=== PATIENT | male | born 1955 | race Caucasian/White ===

== ENCOUNTER 2018-07-01 08:23 | Emergency (ER) | payer MEDICARE ==
[2018-07-01 09:00] LABS: #Eosinphils 0.2 thou/uL (0.0-0.7); #Lymphocytes 2.5 thou/uL (1.20-3.40); #Monocytes 0.4 thou/uL (0.11-0.59); #Neutrophils 2.1 thou/uL (1.40-6.50); %Basophils 0.7 % (0.0-1.0); %Eosinophils 4.6 % (0.0-10.0); %Lymphocytes 47.6 % (21.0-51.0); %Monocytes 8.1 % (0.0-10.0); Hemoglobin 14.7 g/dL (14.0-18.0); Mean Corpuscular HGB CONC 33.6 g/dL (32.0-36.0); Mean Corpuscular Hemoglobin 30.3 pg (27.0-31.0); Mean Corpuscular Volume 90.2 fL (78.0-98.0); Mean Platelet Volume 8.6 fL (7.4-10.4); Platelet Count 206 thou/uL (130-400); RBC Distribution Width 11.6 % (11.5-14.5); Red Blood Cell (RBC) Count 4.87 mill/uL (4.70-6.10); White Blood Cell (WBC) Count 5.3 thou/uL (4.8-10.8)
[2018-07-01 09:24] LABS: ALT (SGPT) 17 U/L (8-55); AST (SGOT) 28 U/L (5-34); Albumin 3.8 g/dL (3.4-4.8); Alkaline Phosphatase 48 U/L (40-150); Anion Gap 14 mmol/L (10-20); BUN (Urea Nitrogen) 12 mg/dL (8.4-25.7); Bilirubin, Total 0.8 mg/dL (0.2-1.2); Calc. Creatinine Clearance 0 mL/min (70-130); Calcium 9.3 mg/dL (7.8-10.44); Carbon Dioxide 24 mmol/L (23-31); Chloride 101 mmol/L (98-107); Estimated GFR-MDRD 54; Glucose 80 mg/dL (80-115); Lipase 67 U/L (8-78); Potassium 4.1 mmol/L (3.5-5.1); Protein, Total 6.8 g/dL (5.8-8.1); Sodium 135 mmol/L (136-145)
[2018-07-01 09:25] LABS: Bilirubin Negative (Negative); Blood, Urine Negative (Negative); Clarity CLEAR (Clear); Glucose, Urine (Dipstick) Negative (Negative); Leukocyte Negative (Negative); Nitrite Negative (Negative); Protein, Urine (Dipstick) Negative (Neg-Trace); Specific Gravity, Urine 1.016 (1.002-1.036); Urobilinogen 0.2 mg/dL (0.2-1.0)
--- NOTE | 2018-07-01 11:52 | CT ---
CT ABDOMEN AND PELVIS WITH ORAL AND IV CONTRAST: Date: 07/01/18 HISTORY: 63-year-old male with lower abdominal pain. Patient has a past medical history of malignant melanoma. FINDINGS: There is scarring in the right lung base. A 5.0 cm mass is seen in the left lobe of the liver with pe ripheral nodular enhancement. No calcified gallstones are seen. The spleen, pancreas, adrenal glands, and kidneys are normal. No free air, free fluid, or lymphadenopathy seen in the abdomen or pelvis. The small bowel loops are not abnormally dilated. There are vascular calcifications without evidence of aneurysmal dilatation o f the abdominal aorta. Degenerative changes are present in the spine. There is no evidence of appendi citis. A fat-containing left inguinal hernia is present. IMPRESSION: 1. No acute process. 2. Probable hemangioma in the liver. Further evaluation with technetium-99m RBC scan is recommended. POS: RAMSEY
== END 2018-07-01 12:08 | disposition home or self-care (01) ==
LOC: ERS 08:23
DX: R10.30 Lower abdominal pain, unspecified (principal); E78.2 Mixed hyperlipidemia; F32.9 Major depressive disorder, single episode, unspecified; Z87.891 Personal history of nicotine dependence; Z79.899 Other long term (current) drug therapy
CPT/HCPCS: 36415; 74177; 80053; 81003; 83690; 84484; 85025; 93005

== ENCOUNTER 2019-05-27 15:53 | Outpatient (CLI) | payer MEDICARE ==
--- NOTE | 2019-05-27 16:14 | RAD ---
3 views of the right foot: 05/27/2019 COMPARISON: None HISTORY: Right foot pain FINDINGS: No fracture or dislocation. No radiopaque foreign body or subcutaneous gas. There is mild d egenerative change at the first interphalangeal joint and first metatarsal-phalangeal joint. There is mild enthesophyte formation at the insertion of the Achilles tendon. IMPRESSION: No acute findings.
== END 2019-05-27 15:54 | disposition home or self-care (01) ==
LOC: SCSRAD 15:53
PROVIDERS: ATTEND Family Medicine
DX: M79.671 Pain in right foot (principal)
CPT/HCPCS: 36415; 84550

== ENCOUNTER 2019-07-10 13:26 | Outpatient (CLI) | payer MEDICARE ==
--- NOTE | 2019-07-10 14:08 | ULT ---
EXAM: Bilateral lower extremity venous Doppler US HISTORY: bilateral lower extremity edema and pain FINDINGS: Grayscale, color-flow, Doppler evaluation, spectral analysis of the bilateral lower extremities venou s structures is performed with 2-D imaging. The bilateral common femoral, superficial femoral, popliteal, posterior tibial, proximal greater saphenous and profunda femoral veins are imaged. There is normal luminal compressibility, flow, and augmentation in the visualized deep venous structu res of the bilateral lower extremities. IMPRESSION: No evidence of a deep vein thrombosis in either lower extremity.
== END 2019-07-10 13:27 | disposition home or self-care (01) ==
LOC: SCSULT 13:26
PROVIDERS: ATTEND Urology
DX: M79.89 Other specified soft tissue disorders (principal); R60.0 Localized edema; Z86.711 Personal history of pulmonary embolism
CPT/HCPCS: 93970

== ENCOUNTER 2019-08-13 16:19 | Inpatient (IN) | payer MEDICARE ==
[2019-08-13] MEDS ORDERED: Norepinephrine 8 MG/0.9% NS 250 ML ONE (16:31)
[2019-08-13 16:56] LABS: #Eosinphils 0.1 thou/uL (0.0-0.7); #Lymphocytes 1.6 thou/uL (1.20-3.40); #Monocytes 0.8 thou/uL (0.11-0.59); #Neutrophils 13.2 thou/uL (1.40-6.50); %Basophils 0.1 % (0.0-1.0); %Eosinophils 0.4 % (0.0-10.0); %Lymphocytes 10.2 % (21.0-51.0); %Monocytes 5.1 % (0.0-10.0); %Neutrophils 84.2 % (42.0-75.0); Hemoglobin 12.2 g/dL (14.0-18.0); Mean Corpuscular HGB CONC 31.8 g/dL (32.0-36.0); Mean Corpuscular Hemoglobin 29.6 pg (27.0-31.0); Mean Corpuscular Volume 93.1 fL (78.0-98.0); Mean Platelet Volume 8.9 fL (7.4-10.4); Platelet Count 155 thou/uL (130-400); RBC Distribution Width 11.7 % (11.5-14.5); Red Blood Cell (RBC) Count 4.13 mill/uL (4.70-6.10); White Blood Cell (WBC) Count 15.7 thou/uL (4.8-10.8)
[2019-08-13] MEDS ORDERED: DOPamine 400 MG/D5W 250 ML 0 ML ONE (16:56)
[2019-08-13 17:03] LABS: INR-International Normal Ratio 1.7; PTT 37.7 SEC (22.9-36.1); Prothrombin Time 19.9 SEC (12.0-14.7)
[2019-08-13 17:17] LABS: ALT (SGPT) 19 U/L (8-55); AST (SGOT) 40 U/L (5-34); Alkaline Phosphatase 46 U/L (40-110); Anion Gap 10 mmol/L (10-20); BUN (Urea Nitrogen) 19 mg/dL (8.4-25.7); Bilirubin, Total 1.1 mg/dL (0.2-1.2); Calc. Creatinine Clearance 0 mL/min (70-130); Calcium 7.6 mg/dL (7.8-10.44); Carbon Dioxide 18 mmol/L (23-31); Chloride 112 mmol/L (98-107); Estimated GFR-MDRD 46; Globulin 1.9 g/dL (2.4-3.5); Glucose 115 mg/dL (80-115); Protein, Total 4.9 g/dL (5.8-8.1); Sodium 137 mmol/L (136-145)
[2019-08-13 17:20] LABS: Potassium 2.7 mmol/L (3.5-5.1)
[2019-08-13] MEDS ORDERED: Potassium Chloride 40 MEQ in Sodium Chloride 0.9% 250 ML 250 ML IVPB SCH (19:30)
[2019-08-13] MEDS ORDERED: Sodium Chloride 0.9% 1,000 ML IV SCH (19:53)
[2019-08-13 19:56] LABS: Lactic Acid 1.1 mmol/L (0.5-2.2)
[2019-08-13] MEDS ORDERED: Norepinephrine 8 MG/0.9% NS 250 ML IVPB SCH ×2 (20:02→20:05)
[2019-08-13] MEDS ORDERED: Ondansetron PF 4 MG/2 ML Vial IVP PRN (20:05)
[2019-08-13] MEDS ORDERED: HYDROcodone/Acetaminophen 5/325 mg Tablet PO PRN ×2 (20:05)
[2019-08-13] MEDS ORDERED: Ondansetron ODT 4 MG TAB PO PRN (20:05)
[2019-08-13] MEDS ORDERED: Guaifenesin DM 100-10/5 ML UDCUP PO PRN (20:05)
[2019-08-13] MEDS ORDERED: Senokot S 8.6-50 MG TAB PO PRN (20:05)
[2019-08-13] MEDS ORDERED: Acetaminophen 325 MG TAB PO PRN (20:05)
[2019-08-13] MEDS ORDERED: Acetaminophen 650 MG Suppository PR PRN (20:05)
[2019-08-13] MEDS: Rosuvastatin 20 MG TAB PO SCH (20:53)
[2019-08-13] MEDS: Sodium Chloride 0.9% 1,000 ML IV SCH (20:53)
--- NOTE | 2019-08-13 20:55 | HP ---
PRIMARY CARE PHYSICIAN: Huber Dominique MD CHIEF COMPLAINT: Altered mental status. HISTORY OF PRESENT ILLNESS: This is a 64-year-old male with a past medical history of hypertension, hyperlipidemia, who developed pain from one of his teeth starting about 5 days ago. The patient went to the dentist three days ago. He was diagnosed by x-ray with an abscess deep under one of his crowns, was given Cipro to take it to calm him down before he went to see the oral surgeon. The patient had continued pain and started feeling worse, just feeling bad all over, but was talking normally and acting normally. He did have a couple episodes of nausea and vomiting, but was able to keep the Cipro down for the most part. It is not certain he was having any fevers at the time when his tried to wake him up this morning, however, he was very difficult to arouse. He was confused and was minimally responsive, so he was brought into the [facility]. There, he was found to be in septic shock with hypotension. He was given 3 L of fluid. He was also found to be hypoglycemic, was given some dextrose, which resolved that. The patient's mental status improved. He remained hypotensive. However, they had to start Levophed on him. They also gave him Zosyn and vancomycin and transported him here. In our ER, he had persistently low blood pressures and had to have his Levophed titrated up eventually to 20, now is titrated back down to 18. His blood pressure started coming up. He had 3 L at the outside ER. He has had another 2 L here. He is feeling much better. His mental status has returned to normal. He is not complaining of any current pain. PAST MEDICAL HISTORY: 1. Hypertension. 2. Hyperlipidemia. 3. Hypothyroidism. 4. Low testosterone. 5. Benign prostatic hyperplasia. 6. Gastroesophageal reflux disease. 7. Neuropathic pain in his foot. 8. Previous melanoma. PAST SURGICAL HISTORY: 1. Left chest wall melanoma removal with left axillary sentinel node excision and left back basal cell excision in 2014. He also later had a left axillary lymph node dissection. 2. Right VATS surgery. 3. Left chest wall recurrent melanoma excision in 2017. 4. EGD in 2019. 5. Right total knee arthroplasty in 2019. SOCIAL HISTORY: The patient is a former smoker and has since quit. He drinks about 1 to 2 beers a day. No illicit drug use. He is . His is accompanied in the room. FAMILY HISTORY: No known family medical problems. ALLERGIES: NO KNOWN DRUG ALLERGIES. CURRENT MEDICATIONS: 1. Mirtazapine 7.5 mg at night. 2. Rosuvastatin 40 mg daily. 3. Tamsulosin 0.4 mg daily. 4. Nexium 40 mg daily. 5. Levothyroxine 0.025 mg daily. 6. Gabapentin 300 mg at bedtime. 7. Testosterone injections weekly. 8. Ciprofloxacin. 9. Flexeril started yesterday. 10. Arthur as needed for pain. REVIEW OF SYSTEMS: CONSTITUTIONAL: No fevers or chills noted. EYES: No double vision or blurred vision. ENT: No congestion, drainage or sore throat. He has had tooth pain and right lower molar as per HPI. CARDIOVASCULAR: No chest pain. No palpitations or racing heart. PULMONARY: No coughing, wheezing or shortness of breath. GASTROINTESTINAL: See HPI. No abdominal pain. No diarrhea. He did have one loose stool here in the emergency room, but has not had any diarrhea. Otherwise, no constipation. GENITOURINARY: No dysuria or hematuria. MUSCULOSKELETAL: No muscle aches or joint pain. SKIN: No rashes or lesions noted. NEUROLOGIC: He had confusion as per the HPI and generalized weakness that has improved now. No focal neurologic signs. LABORATORY DATA: CBC with white blood cell count of 15,000, hemoglobin 12.2, hematocrit 38.5, platelet count 155. He has a neutrophil predominance at 84%. Coagulation profile shows an INR of 1.7. Complete metabolic panel is notable for potassium of 2.7, chloride of 112, carbon dioxide of 18, creatinine of 1.53, calcium of 7.6, AST of 40, and albumin of 3.0. The rest is normal. Lactic acid here was elevated that was not elevated outside the ER, 2.4 here at 4:49 in the afternoon. IMAGING: I did review the imaging reports from the outside emergency room. He had a chest x-ray that showed no acute abnormalities. CT of the abdomen and pelvis that showed 2.4 cm indeterminate left hepatic lobe lesion, but no significant acute findings. He had a CT of the cervical spine without contrast showing no abnormalities. He had a CT of the head without contrast showing no acute intracranial abnormalities, though he did have some moderate mucosal disease of the sinuses. Other lab from the outside ER shows negative flu swab and urine drug screen that showed opiates and he is on those from the dentist. Lactic acid in the outside emergency room was normal. His glucose was initially 27 on presentation and that came up by the time he was here. TSH was normal. His creatinine was 1.8 in the outside emergency room. Potassium was 3.3. Lipase was negative. Magnesium was low at 1.5. No other significant abnormalities. EKG, I did review the EKG done in the emergency room, does show normal sinus rhythm without any significant ST changes. ASSESSMENT: 1. Septic shock likely from dental abscess as origin. We will continue IV fluids and pressors, and we will give Zosyn and vancomycin. Blood and urine cultures were collected at the outside emergency room before initial antibiotics, so we will need to follow up on those results. I will consult Pulmonology, Dr. Real, to assist with managing this patient. 2. Dental abscess. We will continue antibiotics. He will continue antibiotics. 3. Hypokalemia. We will give potassium IV cocktail. 4. Hypertension. We will hold antihypertensives for now due to his septic shock. 5. Hyperlipidemia. We will resume patient's statin. 6. Hypothyroidism. We will resume patient's levothyroxine. 7. Gastrointestinal prophylaxis. We will continue patient on a PPI. 8. Deep venous thrombosis prophylaxis. We will put patient on subcu Lovenox. 9. Code status. I did discuss this with the patient. He is a full code. Should he be incapacitated, his would be his medical decision maker. Her name is Lori Johnsonsallo. Job ID: [id number]
[2019-08-13] MEDS: Piperacillin/Tazobactam 4.5 GM in Sodium Chloride 0.9% 100 ML IVPB SCH (23:33)
[2019-08-13] MEDS ORDERED: Piperacillin/Tazobactam 4.5 GM in Sodium Chloride 0.9% 100 ML IVPB SCH (23:59)
[2019-08-14] MEDS ORDERED: Dextrose 50 % In Water 50 ML SYRINGE ONE (01:07)
[2019-08-14] MEDS ORDERED: Dextrose 50 % In Water 50 ML SYRINGE IV SCH (01:20)
[2019-08-14] MEDS: Piperacillin/Tazobactam 4.5 GM in Sodium Chloride 0.9% 100 ML IVPB SCH ×3 (05:46→17:01)
[2019-08-14] MEDS: Dextrose 5 % And 0.9 % NaCl 1,000 ML IV SCH ×4 (05:47→20:42)
[2019-08-14] MEDS: Sodium Chloride 0.9% 1,000 ML IV SCH ×4 (05:48→20:43)
[2019-08-14] MEDS: Levothyroxine Sodium 25 MCG TAB PO SCH (05:48)
[2019-08-14 05:51] LABS: #Eosinphils 0.1 thou/uL (0.0-0.7); #Lymphocytes 1.3 thou/uL (1.20-3.40); #Monocytes 0.5 thou/uL (0.11-0.59); #Neutrophils 6.2 thou/uL (1.40-6.50); %Basophils 0.6 % (0.0-1.0); %Eosinophils 1.6 % (0.0-10.0); %Lymphocytes 16.2 % (21.0-51.0); %Monocytes 5.8 % (0.0-10.0); %Neutrophils 75.9 % (42.0-75.0); Hemoglobin 10.1 g/dL (14.0-18.0); Mean Corpuscular HGB CONC 31.9 g/dL (32.0-36.0); Mean Corpuscular Hemoglobin 29.3 pg (27.0-31.0); Mean Corpuscular Volume 91.9 fL (78.0-98.0); Mean Platelet Volume 9.6 fL (7.4-10.4); Platelet Count 130 thou/uL (130-400); RBC Distribution Width 11.9 % (11.5-14.5); Red Blood Cell (RBC) Count 3.46 mill/uL (4.70-6.10); White Blood Cell (WBC) Count 8.1 thou/uL (4.8-10.8)
[2019-08-14 06:15] LABS: Anion Gap 8 mmol/L (10-20); BUN (Urea Nitrogen) 16 mg/dL (8.4-25.7); Calc. Creatinine Clearance 46 mL/min (70-130); Calcium 7.5 mg/dL (7.8-10.44); Carbon Dioxide 18 mmol/L (23-31); Chloride 118 mmol/L (98-107); Estimated GFR-MDRD 39; Glucose 87 mg/dL (80-115); Magnesium 1.8 mg/dL (1.6-2.6); Potassium 3.8 mmol/L (3.5-5.1); Sodium 140 mmol/L (136-145)
[2019-08-14] MEDS ORDERED: Albumin 25% 25 GM/100 ML BOT IVPB SCH (09:00)
--- NOTE | 2019-08-14 09:39 | CON ---
DATE OF CONSULTATION: HISTORY OF PRESENT ILLNESS: A 64-year-old gentleman from [place], [place], who was brought in here after he presented to the ER with apparently pain in his tooth. Apparently, he was hypertensive. His blood pressure was low in the ER, 88 systolic, respirations 16, saturations 100% on 2 L, received large volume of fluids. He was then transferred to [facility]. He is in the ICU right now, appears to be somewhat encephalopathic. His gives adequate history. PAST MEDICAL HISTORY: Pertinent for malignant melanoma diagnosed in 2014, status post wedge resection, chest wall, right side; history of high cholesterol; hyperlipidemia; high triglycerides; depression. PAST SURGICAL HISTORY: Right total knee . SOCIAL HISTORY: Smoking, quit 10 years ago. Alcohol: None. HOME MEDICATIONS: Includes Remeron 7.5, Crestor 40, Flomax 0.4, Synthroid 25, gabapentin 300, Nexium 40. ALLERGIES: NONE. SOCIAL AND FAMILY HISTORY: Unremarkable. PHYSICAL EXAMINATION: VITAL SIGNS: Blood pressure is 96/64, pulse is 86, saturations are 100% on 2 L, respirations 18. He has good urine output. NEUROLOGICAL: He is encephalopathic, but in no distress. CHEST: No wheezing or crackle. CARDIAC: Normal S1 and S2. No gallops. ABDOMEN: No masses. LABORATORY DATA: White count 8000, H and H 10 and 30, platelet count 138. Creatinine 1.74, glucose 110. ASSESSMENT AND PLAN: 1. Sepsis syndrome. 2. Infected teeth caries, multiple right upper jaw. 3. Azotemia. 4. Electrolyte imbalance. 5. History of melanoma. Pulmonary wang, I have added hydrocortisone to his regime, stress dose of steroids. Continue broad-spectrum antibiotics and supportive care. Wean Levophed when blood pressure is improved. He probably needs an outpatient evaluation regarding his bad teeth. This is a consultation note, 70 minutes, 50% direct patient care. Job ID: [id number]
[2019-08-14] MEDS: Enoxaparin Sodium 40 MG/0.4 ML SYRINGE SC SCH (10:08)
--- NOTE | 2019-08-14 11:41 | RAD ---
PORTABLE CHEST: Date: 08/14/2019 HISTORY: COPD. FINDINGS: Heart size within normal limits. Right-sided central line is present with catheter tip in superior ve na cava. Slight elevation of the right hemidiaphragm. Some minimal blunting to the right costophrenic angle is present. IMPRESSION: 1. Right-sided central line with catheter tip overlying superior vena cava. 2. Minimal blunting to right costophrenic angle. POS: RAMSEY
[2019-08-14] MEDS ORDERED: Vancomycin 1.5 GRAM/300 ML BAG 1.5 GM in Premix Bag 1 BAG IVPB SCH (13:00)
[2019-08-14] MEDS: Hydrocortisone Sod Succ/PF 100 mg/2 ml Vial IVP SCH ×2 (13:20→17:01)
--- NOTE | 2019-08-14 15:27 | PDOC.HOSPP ---
- Subjective Subjective: Patient seen and examined in the intensive care unit. at bedside, time was given for questions, all answered in detail. Vasoactive medications have been weaned. Patient is feeling much better. Patient's blood pressure normally runs 90 systolic per patient and his at bedside. He has been more alert and awake to his baseline. No fevers. WBC count has down trended with broad- spectrum antibiotics and he is responding to maximal medical therapy. - Objective Vital Signs & Weight: Vital Signs (12 hours) Temp 08/14/19 07:00 98.6 F 08/14/19 04:00 99.3 F Weight Weight 173 lb 1.006 oz Most Recent Monitor Data Heart Rate from ECG 83 NIBP 94/59 NIBP BP-Mean 70 Respiration from ECG 17 SpO2 100 I&O: 08/13/19 08/14/19 08/15/19 06:59 06:59 06:59 Intake Total 1945 200 Output Total 960 525 Balance 985 -325 Result Diagrams: 08/14/19 04:00 08/14/19 04:00 Additional Labs: Accuchecks 08/14/19 08/14/19 08/14/19 04:10 01:35 01:04 POC Glucose 110 127 H 48 L* Hospitalist ROS - Review of Systems All other systems reviewed; all pertinent +/- noted in HPI/Subj - Medication Medications: Active Medications Generic Name Dose Route Start Last Admin Trade Name Freq PRN Reason Stop Dose Admin Enoxaparin Sodium 40 mg 08/14/19 09:00 08/14/19 10:08 Lovenox SC 40 mg 0900 MICHEAL Administration Hydrocortisone Sodium Succinate 50 mg 08/14/19 12:00 08/14/19 13:20 Solu-Cortef IVP 08/21/19 12:01 50 mg Q6HR MICHEAL Administration Sodium Chloride 1,000 mls @ 150 mls/hr 08/13/19 20:05 08/14/19 10:08 Normal Saline 0.9% IV Not Given .Q6H40M MICHEAL Piperacillin Sod/Tazobactam 100 mls @ 200 mls/hr 08/13/19 23:59 08/14/19 13: 18 Sod 4.5 gm/ Sodium Chloride IVPB 100 mls Q6HR MICHEAL Administration Norepinephrine Bitartrate 250 mls @ 0 mls/hr 08/13/19 20:05 08/13/19 23:37 Levophed IVPB 250 mls INF MICHEAL Administration Protocol Titrate Dextrose/Sodium Chloride 1,000 mls @ 150 mls/hr 08/14/19 04:00 08/14/19 10:07 D5 0.9% Ns IV 1,000 mls .Q6H40M MICHEAL Administration Levothyroxine Sodium 25 mcg 08/14/19 06:00 08/14/19 05:48 Synthroid PO 25 mcg 0600 MICHEAL Administration Ondansetron HCl 4 mg 08/13/19 20:05 08/14/19 10:06 Zofran IVP 4 mg Q6H PRN Administration Nausea/Vomiting Pantoprazole Sodium 40 mg 08/14/19 09:00 08/14/19 10:06 Protonix PO Not Given DAILY MICHEAL Rosuvastatin Calcium 40 mg 08/13/19 21:00 08/13/19 20:53 Crestor PO 40 mg HS MICHEAL Administration Sodium Chloride 10 ml 08/13/19 21:00 08/14/19 10:08 Flush - Normal Saline IVF Not Given Q12HR MICHEAL - Exam General Appearance: NAD, awake alert Eye: PERRL ENT: normocephalic atraumatic, moist mucosa Neck: supple, symmetric, no thyromegaly Heart: no murmur, no gallops, no rubs Respiratory: CTAB, no wheezes, no rales, no ronchi, normal chest expansion, no tachypnea Gastrointestinal: soft, non-tender, non-distended, normal bowel sounds, no bruit , no guarding Extremities: no edema Skin: no lesions, no rashes Neurological: cranial nerve grossly intact, normal sensation to touch, no focal deficits Musculoskeletal: generalized weakness Psychiatric: normal affect, normal behavior, A&O x 3 Hosp A/P (1) Septic shock Code(s): A41.9 - SEPSIS, UNSPECIFIED ORGANISM; R65.21 - SEVERE SEPSIS WITH SEPTIC SHOCK Status: Acute (2) Dental abscess Code(s): K04.7 - PERIAPICAL ABSCESS WITHOUT SINUS Status: Acute (3) BPH (benign prostatic hyperplasia) Code(s): N40.0 - BENIGN PROSTATIC HYPERPLASIA WITHOUT LOWER URINRY TRACT SYMP Status: Acute (4) Tooth pain Code(s): K08.89 - OTHER SPECIFIED DISORDERS OF TEETH AND SUPPORTING STRUCTURES Status: Acute - Plan Plan: intensive care unit pulmonology/critical-care consultation, recommendations appreciated patient has been weaned from vasoactive medications stress steroids broad-spectrum antibiotics blood cultures urine culture we will try to obtain initial blood culture results from Angela de-escalate to culture and sensitivity as able pain control continue home medications as able G.I. prophylaxis DVT prophylaxis
[2019-08-14 15:38] LABS: Bacteria/HPF 2+ HPF (None Seen); Bilirubin Negative (Negative); Blood, Urine 2+ (Negative); Clarity Extra Turbid (Clear); Glucose, Urine (Dipstick) Normal (Negative); Leukocyte 500 Leu/uL (Negative); Nitrite Negative (Negative); Protein, Urine (Dipstick) 30 mg/dL (Neg-Trace); RBC/HPF Greater than 50 HPF (0-3); Squamous Epithelial 0-3 HPF (0-3); Urobilinogen Normal mg/dL (Less than 2); WBC/HPF 21-50 HPF (0-3)
[2019-08-14 15:39] LABS: Urine Culture Reflex Yes Yes
[2019-08-14] MEDS: Mirtazapine 15 MG TAB PO SCH (20:41)
[2019-08-14] MEDS: Rosuvastatin 20 MG TAB PO SCH (20:42)
[2019-08-15] MEDS ORDERED: Lorazepam 2 MG/ML VIAL ONE (00:34)
[2019-08-15] MEDS: Hydrocortisone Sod Succ/PF 100 mg/2 ml Vial IVP SCH ×4 (00:44→17:40)
[2019-08-15] MEDS ORDERED: Lorazepam 2 MG/ML VIAL SLOW IVP SCH (00:45)
[2019-08-15] MEDS: Piperacillin/Tazobactam 4.5 GM in Sodium Chloride 0.9% 100 ML IVPB SCH ×4 (00:46→17:38)
[2019-08-15] MEDS: Sodium Chloride 0.9% 1,000 ML IV SCH ×3 (00:55→19:57)
[2019-08-15] MEDS ORDERED: Lorazepam 2 MG/ML VIAL SLOW IVP PRN (01:15)
[2019-08-15] MEDS: Dextrose 5 % And 0.9 % NaCl 1,000 ML IV SCH (04:38)
[2019-08-15] MEDS: Levothyroxine Sodium 25 MCG TAB PO SCH ×2 (05:28→09:22)
[2019-08-15] MEDS: Tamsulosin HCl 0.4 MG CAP PO SCH (09:21)
[2019-08-15] MEDS: Enoxaparin Sodium 40 MG/0.4 ML SYRINGE SC SCH (09:23)
[2019-08-15 10:38] LABS: #Lymphocytes 0.8 thou/uL (1.20-3.40); #Monocytes 0.3 thou/uL (0.11-0.59); #Neutrophils 8.3 thou/uL (1.40-6.50); %Eosinophils 0.1 % (0.0-10.0); %Lymphocytes 8.1 % (21.0-51.0); %Monocytes 3.5 % (0.0-10.0); %Neutrophils 88.3 % (42.0-75.0); Hemoglobin 10.2 g/dL (14.0-18.0); Mean Corpuscular Hemoglobin 30.5 pg (27.0-31.0); Mean Corpuscular Volume 92.5 fL (78.0-98.0); Mean Platelet Volume 9.4 fL (7.4-10.4); Platelet Count 142 thou/uL (130-400); RBC Distribution Width 11.9 % (11.5-14.5); Red Blood Cell (RBC) Count 3.35 mill/uL (4.70-6.10); White Blood Cell (WBC) Count 9.4 thou/uL (4.8-10.8)
[2019-08-15 10:58] LABS: Anion Gap 11 mmol/L (10-20); BUN (Urea Nitrogen) 13 mg/dL (8.4-25.7); Calc. Creatinine Clearance 52 mL/min (70-130); Calcium 7.9 mg/dL (7.8-10.44); Carbon Dioxide 18 mmol/L (23-31); Chloride 119 mmol/L (98-107); Estimated GFR-MDRD 45; Glucose 213 mg/dL (80-115); Potassium 3.9 mmol/L (3.5-5.1); Sodium 144 mmol/L (136-145)
--- NOTE | 2019-08-15 11:19 | PRG ---
DATE OF SERVICE: 08/15/2019 SUBJECTIVE: Barbra is a 64-year-old gentleman, remains encephalopathic in the ICU, but no longer hypotensive. OBJECTIVE: VITAL SIGNS: Pulse 68, blood pressure 128/78, saturations 100% on 2 L, respiratory rate 14. EXTREMITIES: Moves all 4 extremities. CHEST: No wheezing or crackles. CARDIAC: Normal S1 and S2. No gallops. ABDOMEN: No masses. LABORATORY DATA: So far cultures are negative. ASSESSMENT: Sepsis syndrome, encephalopathy, history of presumed dental abscess. Chest x-ray is normal. Continue hydrocortisone. Broad-spectrum antibiotics. Await culture. Incidentally, his cortisol level was less than 1. We will follow while in the ICU. Job ID: [id number]
[2019-08-15 12:37] LABS: Vancomycin, Trough 12.3 ug/mL
--- NOTE | 2019-08-15 13:40 | PDOC.HOSPP ---
- Subjective Subjective: Seen and examined. Patient confused this a.m., he had episode yesterday with his at bedside where he was also confused. Patient knows his name, though that is all for orientation we can get today. Patient when asked where he is [place] He does not know the situation. He does not know the year. Patient is currently calm and following commands. Patient has been off vasoactive medications since yesterday morning. We'll plan to downgrade to the medical unit with telemetry. - Objective Vital Signs & Weight: Vital Signs (12 hours) Temp Pulse Ox 08/15/19 08:00 100 08/15/19 07:00 98.1 F 08/15/19 04:00 97.6 F Weight Admit Weight 173 lb Weight 173 lb 1.006 oz Most Recent Monitor Data Heart Rate from ECG 75 NIBP 126/78 NIBP BP-Mean 94 Respiration from ECG 19 SpO2 100 I&O: 08/14/19 08/15/19 08/16/19 06:59 06:59 06:59 Intake Total 1945 4666 120 Output Total 960 3470 285 Balance 985 1196 -165 Result Diagrams: 08/15/19 10:25 08/15/19 10:25 Additional Labs: Accuchecks 08/15/19 00:27 POC Glucose 235 H Radiology Reviewed by me: Yes Hospitalist ROS - Review of Systems All other systems reviewed; all pertinent +/- noted in HPI/Subj - Medication Medications: Active Medications Generic Name Dose Route Start Last Admin Trade Name Freq PRN Reason Stop Dose Admin Enoxaparin Sodium 40 mg 08/14/19 09:00 08/15/19 09:23 Lovenox SC 40 mg 0900 MICHEAL Administration Hydrocortisone Sodium Succinate 50 mg 08/14/19 12:00 08/15/19 05:29 Solu-Cortef IVP 08/21/19 12:01 50 mg Q6HR MICHEAL Administration Piperacillin Sod/Tazobactam 100 mls @ 200 mls/hr 08/13/19 23:59 08/15/19 05: 30 Sod 4.5 gm/ Sodium Chloride IVPB 100 mls Q6HR MICHEAL Administration Norepinephrine Bitartrate 250 mls @ 0 mls/hr 08/13/19 20:05 08/13/19 23:37 Levophed IVPB 250 mls INF MICHEAL Administration Protocol Titrate Sodium Chloride 1,000 mls @ 75 mls/hr 08/15/19 10:09 08/15/19 10:42 Normal Saline 0.9% IV Not Given .[id number] MICHEAL Levothyroxine Sodium 25 mcg 08/14/19 06:00 08/15/19 05:28 Synthroid PO 25 mcg 0600 MICHEAL Administration Levothyroxine Sodium 25 mcg 08/15/19 09:00 08/15/19 09:22 Synthroid PO Not Given DAILY MICHEAL Mirtazapine 7.5 mg 08/14/19 21:00 08/14/19 20:41 Remeron PO 7.5 mg HS MICHEAL Administration Ondansetron HCl 4 mg 08/13/19 20:05 08/14/19 10:06 Zofran IVP 4 mg Q6H PRN Administration Nausea/Vomiting Pantoprazole Sodium 40 mg 08/14/19 09:00 08/15/19 09:22 Protonix PO 40 mg DAILY MICHEAL Administration Pantoprazole Sodium 40 mg 08/15/19 09:00 08/15/19 09:23 Protonix PO Not Given DAILY MICHEAL Rosuvastatin Calcium 40 mg 08/13/19 21:00 08/14/19 20:42 Crestor PO 40 mg HS MICHEAL Administration Sodium Chloride 10 ml 08/13/19 21:00 08/15/19 09:23 Flush - Normal Saline IVF 10 ml Q12HR MICHEAL Administration Tamsulosin HCl 0.4 mg 08/15/19 09:00 08/15/19 09:21 Flomax PO 0.4 mg DAILY MICHEAL Administration - Exam General Appearance: NAD Eye: anicteric sclera ENT: normocephalic atraumatic, moist mucosa Neck: supple, symmetric, no lymphadenopathy Heart: no murmur, no gallops, no rubs Respiratory: CTAB, no wheezes, no rales, no ronchi, normal chest expansion, no tachypnea Gastrointestinal: soft, non-tender, no guarding, no rigidity Extremities: no edema Skin: no lesions, no rashes Neurological: cranial nerve grossly intact, no focal deficits Musculoskeletal: generalized weakness Psychiatric: oriented to person. negative: oriented to place, oriented to time Hosp A/P (1) Septic shock Code(s): A41.9 - SEPSIS, UNSPECIFIED ORGANISM; R65.21 - SEVERE SEPSIS WITH SEPTIC SHOCK Status: Acute (2) Dental abscess Code(s): K04.7 - PERIAPICAL ABSCESS WITHOUT SINUS Status: Acute (3) BPH (benign prostatic hyperplasia) Code(s): N40.0 - BENIGN PROSTATIC HYPERPLASIA WITHOUT LOWER URINRY TRACT SYMP Status: Acute (4) Tooth pain Code(s): K08.89 - OTHER SPECIFIED DISORDERS OF TEETH AND SUPPORTING STRUCTURES Status: Acute - Plan Plan: intensive care unit, stable for medical unit with telmetry pulmonology/critical-care consultation, recommendations appreciated patient has been weaned from vasoactive medications, off for 24 hours stress steroids broad-spectrum antibiotics blood cultures - no growth to date urine culture - no growth to date we will try to obtain initial blood culture results from Angela de-escalate to culture and sensitivity as able pain control continue home medications as able G.I. prophylaxis DVT prophylaxis
[2019-08-15] MEDS: Vancomycin HCl 1.75 GM in Sodium Chloride 0.9% 500 ML IVPB SCH (13:55)
[2019-08-15] MEDS: Mirtazapine 15 MG TAB PO SCH (19:53)
[2019-08-15] MEDS: Rosuvastatin 20 MG TAB PO SCH (19:53)
[2019-08-16] MEDS: Hydrocortisone Sod Succ/PF 100 mg/2 ml Vial IVP SCH ×4 (00:59→18:29)
[2019-08-16] MEDS: Piperacillin/Tazobactam 4.5 GM in Sodium Chloride 0.9% 100 ML IVPB SCH ×3 (01:00→13:15)
[2019-08-16] MEDS: Sodium Chloride 0.9% 1,000 ML IV SCH ×2 (01:02→14:25)
[2019-08-16] MEDS: Levothyroxine Sodium 25 MCG TAB PO SCH (09:49)
[2019-08-16] MEDS: Enoxaparin Sodium 40 MG/0.4 ML SYRINGE SC SCH (09:49)
[2019-08-16] MEDS: Tamsulosin HCl 0.4 MG CAP PO SCH (09:50)
[2019-08-16] MEDS: Vancomycin HCl 1.75 GM in Sodium Chloride 0.9% 500 ML IVPB SCH (13:16)
--- NOTE | 2019-08-16 13:22 | PRG ---
DATE OF SERVICE: 08/16/2019 SUBJECTIVE: This morning, he is much more awake, alert, and responsive. OBJECTIVE: VITAL SIGNS: Temperature 98, pulse 62, respiratory rate 24, sats room air, blood pressure 164/84. EXTREMITIES: 1+ edema. CHEST: Decreased breath sounds. No wheezing. CARDIAC: Normal S1, S2. No gallops. ABDOMEN: Soft. No masses. ASSESSMENT AND PLAN: Presumed sepsis syndrome, severe deconditioning. All cultures are negative. I would consider discontinuing vancomycin. Supportive care, PT. Job ID: [id number]
[2019-08-16] MEDS ORDERED: Polyethylene Glycol 3350 17 GM Packet PO PRN (15:14)
[2019-08-16] MEDS ORDERED: Magnesium 2 GM/50 ML 2 GM in Premix Bag 1 BAG IVPB SCH (16:15)
--- NOTE | 2019-08-16 16:47 | CT ---
CT FACIAL BONES WITHOUT CONTRAST: History: Dental abscess FINDINGS/IMPRESSION: Lack of IV contrast may reduce the accuracy of the exam. There is bony destruction involving the left central maxillary iscisors. There is associated soft tis raymon within the bony destruction of the hard palate. The possibility of abscess cannot be excluded. Th ere is a bony defect superiorly at its roof, at the inferior aspect of the left nasal cavity. No large drainable abcess is seen. There is periodontal disease involving the right lateral maxillar incisor. There is mucosal disease in the paranasal sinuses. No air fluid levels are seen. The remainder of the facial bones are otherwise unremarkable. POS: OFF
[2019-08-16] MEDS ORDERED: Amoxicillin/Potassium Clav 500 MG TAB PO SCH (21:00)
--- NOTE | 2019-08-16 21:24 | PDOC.HOSPP ---
- Subjective Encounter Date: 08/16/19 Encounter Time: 14:00 Subjective: Patient seen and examined for Sepsis. Feels gen weak. No fever/cough. No new complaints. No overnight events - Objective Vital Signs & Weight: Vital Signs (12 hours) Temp Pulse Resp BP Pulse Ox 08/16/19 15:44 98.1 F 52 L 19 149/86 H 99 08/16/19 13:33 156/95 H 08/16/19 12:00 98.0 F 62 24 H 166/84 H 98 Weight Admit Weight 173 lb Weight 173 lb 1.006 oz Most Recent Monitor Data Heart Rate from ECG 84 NIBP 133/96 NIBP BP-Mean 108 Respiration from ECG 21 SpO2 100 I&O: 08/15/19 08/16/19 08/17/19 06:59 06:59 06:59 Intake Total 4666 480 150 Output Total 3470 1575 Balance 1196 -1095 150 Result Diagrams: 08/15/19 10:25 08/15/19 10:25 Additional Labs: Microbiology 08/14/19 15:42 Urine voided Urine Culture - Final NO GROWTH AT 36 HOURS 08/14/19 10:50 Stool C. difficile GDH Antigen & Toxins - Final 08/14/19 15:09 Central Line - Right Subclavian Vein Blood Culture - Preliminary NO GROWTH AT 48 HOURS 08/14/19 14:49 Central Line - Right Subclavian Vein Blood Culture - Preliminary NO GROWTH AT 48 HOURS Laboratory Tests 08/14/19 08/14/19 01:04 04:00 POC Glucose 48 L* Cortisol Less than 1.00 Radiology Reviewed by me: Yes (CXR - neg) EKG Reviewed by me: Yes (Tele SR) Hospitalist ROS - Review of Systems Respiratory: denies: cough, dry, shortness of breath, hemoptysis, SOB with excertion, pleuritic pain, sputum, wheezing, other Cardiovascular: denies: chest pain, palpitations, orthopnea, paroxysmal noc. dyspnea, edema, light headedness, other - Medication Medications: Active Medications Generic Name Dose Route Start Last Admin Trade Name Freq PRN Reason Stop Dose Admin Enoxaparin Sodium 40 mg 08/14/19 09:00 08/16/19 09:49 Lovenox SC 40 mg 0900 MICHEAL Administration Hydrocortisone Sodium Succinate 50 mg 08/14/19 12:00 08/16/19 18:29 Solu-Cortef IVP 08/21/19 12:01 50 mg Q6HR MICHEAL Administration Levothyroxine Sodium 25 mcg 08/15/19 09:00 08/16/19 09:49 Synthroid PO 25 mcg DAILY MICHEAL Administration Mirtazapine 7.5 mg 08/14/19 21:00 08/15/19 19:53 Remeron PO 7.5 mg HS MICHEAL Administration Ondansetron HCl 4 mg 08/13/19 20:05 08/14/19 10:06 Zofran IVP 4 mg Q6H PRN Administration Nausea/Vomiting Pantoprazole Sodium 40 mg 08/15/19 09:00 08/16/19 09:50 Protonix PO 40 mg DAILY MICHEAL Administration Rosuvastatin Calcium 40 mg 08/13/19 21:00 08/15/19 19:53 Crestor PO 40 mg HS MICHEAL Administration Senna/Docusate Sodium 2 tab 08/13/19 20:05 08/16/19 09:50 Senokot S PO 2 tab BID PRN Administration Constipation Sodium Chloride 10 ml 08/13/19 21:00 08/16/19 09:50 Flush - Normal Saline IVF 10 ml Q12HR MICHEAL Administration Tamsulosin HCl 0.4 mg 08/15/19 09:00 08/16/19 09:50 Flomax PO 0.4 mg DAILY MICHEAL Administration - Exam General Appearance: NAD Heart: RRR, no gallops, no rubs, normal peripheral pulses Respiratory: no wheezes, no rales, no ronchi, normal chest expansion Gastrointestinal: non-tender, non-distended, normal bowel sounds, no guarding, no rigidity Extremities: no cyanosis, no clubbing Neurological: no focal deficits Psychiatric: normal affect, A&O x 3 Hosp A/P - Plan DVT proph w/SCDs Severe Sepsis/Septic shock due to dental abscess (POA) Adrenal insufficiency BRISA on CKD 3 Metabolic acidosis/Lactic acidosis Hypoglycemia Hypokalemia Chronic Anemia Hypomagnesemia h/o Melanoma Physical deconditioning Coagulopathy due to sepsis Chronic liver lesion per family Hypothyroidism PLAN: I d/w Oral surgeon Dr Abdi - Will get CT facial bones Change Augmentin to 875 mg per Oral surgeon DC IVF Replace Magnessium Cont other meds PT/OT Cont other meds AM labs
[2019-08-16] MEDS: Mirtazapine 15 MG TAB PO SCH (22:01)
[2019-08-16] MEDS: Amoxicillin/Potassium Clav 875 MG TAB PO SCH (22:01)
[2019-08-16] MEDS: Rosuvastatin 20 MG TAB PO SCH (22:02)
[2019-08-16] MEDS: Senokot S 8.6-50 MG TAB PO SCH (22:02)
[2019-08-16] MEDS: Saccharomyces boulardii 250 MG CAP PO SCH (22:03)
[2019-08-17] MEDS: Hydrocortisone Sod Succ/PF 100 mg/2 ml Vial IVP SCH ×2 (00:56→05:40)
[2019-08-17 04:23] LABS: #Lymphocytes 1.2 thou/uL (1.20-3.40); #Monocytes 0.4 thou/uL (0.11-0.59); #Neutrophils 5.7 thou/uL (1.40-6.50); %Basophils 0.5 % (0.0-1.0); %Eosinophils 0.1 % (0.0-10.0); %Lymphocytes 15.7 % (21.0-51.0); %Monocytes 5.6 % (0.0-10.0); %Neutrophils 78.1 % (42.0-75.0); Hemoglobin 9.3 g/dL (14.0-18.0); Mean Corpuscular HGB CONC 33.6 g/dL (32.0-36.0); Mean Corpuscular Hemoglobin 30.9 pg (27.0-31.0); Mean Platelet Volume 9.8 fL (7.4-10.4); Platelet Count 182 thou/uL (130-400); RBC Distribution Width 12.1 % (11.5-14.5); Red Blood Cell (RBC) Count 2.99 mill/uL (4.70-6.10); White Blood Cell (WBC) Count 7.3 thou/uL (4.8-10.8)
[2019-08-17 04:41] LABS: ALT (SGPT) 17 U/L (8-55); AST (SGOT) 21 U/L (5-34); Albumin 3.4 g/dL (3.4-4.8); Alkaline Phosphatase 43 U/L (40-110); Anion Gap 9 mmol/L (10-20); BUN (Urea Nitrogen) 24 mg/dL (8.4-25.7); Bilirubin, Total 0.4 mg/dL (0.2-1.2); Calc. Creatinine Clearance 56 mL/min (70-130); Calcium 7.9 mg/dL (7.8-10.44); Carbon Dioxide 20 mmol/L (23-31); Chloride 117 mmol/L (98-107); Estimated GFR-MDRD 49; Glucose 159 mg/dL (80-115); Magnesium 2.3 mg/dL (1.6-2.6); Potassium 3.3 mmol/L (3.5-5.1); Protein, Total 5.4 g/dL (5.8-8.1); Sodium 143 mmol/L (136-145)
[2019-08-17 04:44] LABS: Phosphorus 1.8 mg/dL (2.3-4.7)
[2019-08-17] MEDS ORDERED: Potassium Chloride 20 MEQ TAB PO SCH (05:45)
[2019-08-17] MEDS ORDERED: Levothyroxine Sodium 50 MCG TAB PO SCH (06:00)
[2019-08-17] MEDS ORDERED: Multivit, Therapeutic 1 TAB PO SCH (09:00)
[2019-08-17] MEDS ORDERED: Cyanocobalamin (Vitamin B-12) 1,000 MCG TAB PO SCH (09:00)
[2019-08-17] MEDS ORDERED: Thiamine 100 MG TAB PO SCH (09:00)
[2019-08-17] MEDS ORDERED: Folic Acid 1 MG TAB PO SCH (09:00)
[2019-08-17] MEDS ORDERED: Phytonadione 10 MG/ML AMP PO SCH (09:00)
[2019-08-17] MEDS: Amoxicillin/Potassium Clav 875 MG TAB PO SCH (09:35)
[2019-08-17] MEDS: Enoxaparin Sodium 40 MG/0.4 ML SYRINGE SC SCH (09:35)
[2019-08-17] MEDS: Saccharomyces boulardii 250 MG CAP PO SCH (09:36)
[2019-08-17] MEDS: Tamsulosin HCl 0.4 MG CAP PO SCH (09:36)
[2019-08-17] MEDS: Senokot S 8.6-50 MG TAB PO SCH (09:38)
[2019-08-17] MEDS: PHOS-NAK 1 PKT PACK PO SCH ×2 (09:48→14:14)
[2019-08-17 11:19] VITALS: BP 152/83; TEMP 97.7
--- NOTE | 2019-08-17 12:01 | PRG ---
DATE OF SERVICE: 08/17/2019 SUBJECTIVE: Aldo Belle is a 64-year-old gentleman, who is much better, less encephalopathic. OBJECTIVE: VITAL SIGNS: Temperature 97, pulse rate 50, respirations are 20, saturations are 96% on room air, and blood pressure 157/78. HEENT: Denies any tooth pain. CHEST: No wheezing or crackles. CARDIAC: Normal S1 and S2. ABDOMEN: Soft, no masses. LABORATORY DATA: Creatinine 1.42. Glucose 159. White count 7300. H and H 9 and 27. ASSESSMENT AND PLAN: Presumed sepsis. All cultures negative. Presumed right upper jaw, infected multiple teeth. Pulmonary wang, he can be discharged home any time. He is to follow up with his maxillofacial physicians regarding extraction of his presumed infected teeth. All his cultures were negative. I will discontinue the hydrocortisone. He is on Augmentin. Pulmonary will follow at a distance, call if needed. Job ID: [id number]
[2019-08-17 14:06] VITALS: BMI 26.6
--- NOTE | 2019-08-17 15:04 | PQF ---
MIRA ESTRADA MALIK MD [id number] CLINICAL DOCUMENTATION IMPROVEMENT CLARIFICATION FORM: ICD-10 Updated PLEASE DO AN ADDENDUM TO THE PROGRESS NOTE WITH ANY DOCUMENTATION UPDATES OR ADDITIONS AND CARRY THROUGH TO DC SUMMARY. THANK YOU. DATE: 08/17/2019 ATTN:DR. Williams WHEAT Please exercise your independent, professional judgment in responding to the clarification form. Clinical indicators are provided on the bottom of this form for your review. Please check appropriate box(s): Encephalopathy: Type: [ ] Acute [ ] Subacute [ ] Chronic Etiology: [ ] Hypertensive [ x ] Metabolic [ x ] Toxic [ ] Hepatic with Coma [ ] Hepatic w/o Coma [ ] Hypoxic [ ] Septic [ ] Wernickes [ ] Drug induced: [ ] Unspecified [ ] in the setting of underlying dementia [ ] Other (please specify) [ ] Other diagnosis [ ] Unable to determine In addition, please specify: Present on Admission (POA): [ ] Yes [ ] No [ ] Unable to determine For continuity of documentation, please document condition throughout progress notes and discharge summary. Thank You. CLINICAL INDICATORS - SIGNS / SYMPTOMS / LABS / RESULTS AND LOCATION IN EMR 2 POTASSIUM 2.7 2/ CHLORIDE 112 > 118 > 119 >> 117 2/ CALCIUM 7.6 > 7.5 08/13 ED REPORT: PT ORIGINALLY BROUGHT TO [facility] FOR AMS 2/ H&P (PATO) HPI: HE WAS CONFUSED AND MINIMALLY RESPONSIVE, SO HE WAS BROUGHT TO THE [facility]. 08/14 CONSULT ([facility]) APPEARS TO BE SOMEWHAT ENCEPHALOPATHIC; ASSESSMENT: 4). ELECTROLYTE IMBALANCE / PN (WOO) ASSESSMENT: ENCEPHALOPATHY 08/15 PN (WOLF) PT CONFUSED THIS AM, HAD EPISODE YESTERDAY WITH HIS AT BEDSIDE WHERE HE WAS ALSO CONFUSED. HE DOES NOT KNOW THE SITUATION. HE DOES NOT KNOW THE YEAR. RISK: SEPTIC SHOCK, HYPOKALEMIA, DENTAL ABSCESS (H&P/PATO) 08/13 TREATMENTS: SERIAL ELECTROLYTE LABS ( 08/13- PRESENT ) ZOSYN IV ( 08/13 - PRESENT) THANK YOU! DEVIN (This form is maintained as a part of the permanent medical record) 2014 [employer] All Rights Reserved [email or web address] [phone] MTDD
--- NOTE | 2019-08-18 14:55 | DIS ---
DATE OF ADMISSION: 08/13/2019 DATE OF DISCHARGE: 08/17/2019 DISCHARGE DISPOSITION: Home. FOLLOWUP: 1. Follow up with primary care physician, Dr. Dominique in 1 week. 2. Follow up with oral surgeon tomorrow at 7:45 a.m. ALLERGIES: NO KNOWN DRUG ALLERGIES. THE PATIENT WAS SEEN AND EXAMINED ON THE DAY OF DISCHARGE. DENIES ANY NEW COMPLAINTS. NO CHEST PAIN, SHORTNESS OF BREATH, OR PALPITATIONS. SYMPTOMATICALLY FEELS MUCH BETTER. DISCHARGE MEDICATIONS: 1. Augmentin 875 mg b.i.d. for next 10 days. 2. Prednisone 10 mg b.i.d. 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 3. Florastor 250 mg b.i.d. 4. PHOS-NaK one packet three times daily, #7. 5. Multivitamin one tablet daily. 6. All other home medications were left unchanged. 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 Quinn. BRIEF HOSPITAL COURSE: The patient is a 64-year-old male, who presented to [facility], with altered mentation. His workup was consistent with severe sepsis/septic shock. He was monitored in the intensive care unit. His blood culture and urine cultures were negative. Please note that he was recently placed on oral antibiotics for dental abscess. He was placed on pressors along with stress dose steroids. Cortisol level was less than 1 prior to initiation of steroids. His cultures have remained negative. He was advised to follow up with separator [employer] as outpatient due to possible adrenal insufficiency. His mentation has significantly improved. He has been ambulating in the hallway. FINAL DIAGNOSES: 1. Severe sepsis/septic shock secondary to dental abscess present on admission. 2. Toxic metabolic encephalopathy, resolved. 3. Adrenal insufficiency. 4. Acute kidney injury on chronic kidney disease, stage 3. 5. Metabolic acidosis/lactic acidosis. 6. Hypoglycemia. 7. Hypokalemia. 8. Chronic anemia. 9. Hypomagnesemia. 10. Physical deconditioning. 11. Coagulopathy secondary to sepsis. 12. Chronic liver lesion according to the family. 13. Hypothyroidism. 14. History of melanoma. The patient and the family understand the above plan of care. Job ID: [id number]
== END 2019-08-17 14:35 | disposition home or self-care (01) | DRG 871 ==
LOC: EEVIPCON 16:19 → ERS 16:19 → CCU 19:46 → 2NO 08-15 16:02
PROVIDERS: ADMIT Emergency Medicine; ATTEND Emergency Medicine
PROC: 3E033XZ Introduction of Vasopressor into Peripheral Vein, Percutaneous Approach (ICD-10-PCS; principal; 2019-08-13)
DX: A41.9 Sepsis, unspecified organism (principal); R65.21 Severe sepsis with septic shock; G92 Toxic encephalopathy; E27.40 Unspecified adrenocortical insufficiency; N17.9 Acute kidney failure, unspecified; E87.4 Mixed disorder of acid-base balance; D68.8 Other specified coagulation defects; E78.5 Hyperlipidemia, unspecified; E03.9 Hypothyroidism, unspecified; N40.0 Benign prostatic hyperplasia without lower urinary tract symptoms; K21.9 Gastro-esophageal reflux disease without esophagitis; N18.3 Chronic kidney disease, stage 3 (moderate); K76.9 Liver disease, unspecified; G62.9 Polyneuropathy, unspecified; K04.7 Periapical abscess without sinus; E87.6 Hypokalemia; E78.1 Pure hyperglyceridemia; E78.00 Pure hypercholesterolemia, unspecified; F32.9 Major depressive disorder, single episode, unspecified; D63.1 Anemia in chronic kidney disease; Z96.651 Presence of right artificial knee joint; I12.9 Hypertensive chronic kidney disease with stage 1 through stage 4 chronic kidney disease, or unspecified chronic kidney disease; E16.2 Hypoglycemia, unspecified; E83.42 Hypomagnesemia; Z85.820 Personal history of malignant melanoma of skin; Z79.899 Other long term (current) drug therapy; Z87.891 Personal history of nicotine dependence
CPT/HCPCS: 36415; 36416; 51702; 70486; 71045; 80048; 80053; 80202; 81001; 82533; 83605; 83735; 84100; 85025; 85610; 85730; 87086; 87324; 87449; 93005; 94760; 96365; 96366; 99292; J1265; J1650; J1720; J2060; J2405; J2543; J3370; J3430; J3475; J3480; J3490; J7050; P9047

== ENCOUNTER 2020-07-19 09:27 | Outpatient (CLI) | payer MEDICARE ==
--- NOTE | 2020-07-19 10:00 | BD ---
EXAM: DEXA bone density examination HISTORY: 65-year-old male with osteopenia for screening COMPARISON: None FINDINGS: L1--bone mineral density 1.186 g/sq cm; T score 1.0 L2--bone mineral density 1.274 g/sq cm; T score 1.6 L3--bone mineral density 1.394 g/sq cm; T score 2.6 L4--bone mineral density 1.503 g/sq cm; T score 3.8 Total L1-L4--bone mineral density 1.347 g/sq cm; T score 2.3 Left femoral neck--bone mineral density0.838; T score -0.7 Total proximal left femur--bone mineral density 1.123; T score 0.6 IMPRESSION: Normal bone density.
--- NOTE | 2020-07-19 10:09 | ULT ---
US Abdominal Aorta: 07/19/2020 9:46 AM CLINICAL HISTORY: AAA screening. STUDY: Limited abdominal ultrasound of the aorta. TECHNIQUE: A limited ultrasound of the abdominal aorta was performed. Spectral analysis of the Dopple r waveform was performed. COMPARISON: None. FINDINGS: The aorta is normal in caliber without evidence of aneurysmal dilatation and measures 1.9 cm in great est dimension. The common iliac arteries are normal in caliber. IMPRESSION: No evidence of abdominal aortic aneurysm.
== END 2020-07-19 09:28 | disposition home or self-care (01) ==
LOC: BICMAMMO 09:27
PROVIDERS: ATTEND Family Medicine
DX: Z13.820 Encounter for screening for osteoporosis (principal); Z13.6 Encounter for screening for cardiovascular disorders; Z79.52 Long term (current) use of systemic steroids
CPT/HCPCS: 76775; 77080

== ENCOUNTER 2021-08-23 13:14 | Outpatient (CLI) | payer MEDICARE | END 2021-08-23 13:15 | disposition home or self-care (01) | LOC: RAD 13:14 | PROVIDERS: ATTEND Specialist | DX: R13.10 Dysphagia, unspecified (principal) | CPT/HCPCS: 74220 ==

== ENCOUNTER 2021-10-06 11:07 | Outpatient (CLI) | payer MEDICARE ==
[2021-10-07 16:08] LABS: SARS-CoV-2 PCR by NAA Not Detected (NotDetected)
== END 2021-10-06 11:08 | disposition home or self-care (01) ==
LOC: LABBT 11:07
PROVIDERS: ATTEND Specialist
DX: K59.00 Constipation, unspecified (principal); Z20.822 Contact with and (suspected) exposure to COVID-19
CPT/HCPCS: U0003; U0005

== ENCOUNTER 2022-06-07 11:01 | Outpatient (CLI) | payer MEDICARE ==
[2022-06-07 12:26] LABS: #Basophils 0.1 10x3/uL (0.0-0.2); #Eosinphils 0.5 10x3/uL (0.0-0.5); #Monocytes 0.7 10x3/uL (0.0-1.1); #Neutrophils 5.1 10x3/uL (1.5-8.4); %Basophils 0.9 % (0.0-2.0); %Eosinophils 5.6 % (0.0-6.0); %Lymphocytes 21.6 % (18.0-47.0); %Monocytes 8.1 % (0.0-10.0); %Neutrophils 62.9 % (40.0-75.0); Hemoglobin 14.8 g/dL (13.5-17.5); Mean Corpuscular HGB CONC 33.8 g/dL (32.0-36.0); Mean Corpuscular Hemoglobin 30.2 pg (27.0-33.0); Mean Corpuscular Volume 89.4 fl (81.2-95.1); Mean Platelet Volume 12.6 fl (7.4-10.4); Platelet Count 176 10x3/uL (150-450); RBC Distribution Width 12.9 % (11.5-14.5); White Blood Cell (WBC) Count 8.2 10x3/uL (3.5-10.5)
[2022-06-07 13:00] LABS: ALT (SGPT) 26 U/L (8-55); AST (SGOT) 23 U/L (5-34); Albumin 4.3 g/dL (3.4-4.8); Alkaline Phosphatase 44 U/L (40-110); Anion Gap 15 mmol/L (10-20); BUN (Urea Nitrogen) 25 mg/dL (8.4-25.7); Bilirubin, Total 0.6 mg/dL (0.2-1.2); Calc. Creatinine Clearance 0 mL/min (70-130); Calcium 9.4 mg/dL (7.8-10.44); Carbon Dioxide 27 mmol/L (23-31); Chloride 105 mmol/L (98-107); Estimated GFR 45; Globulin 2.5 g/dL (2.4-3.5); Glucose 93 mg/dL (80-115); Potassium 4.5 mmol/L (3.5-5.1); Protein, Total 6.8 g/dL (5.8-8.1); Sodium 142 mmol/L (136-145)
== END 2022-06-07 11:02 | disposition home or self-care (01) ==
LOC: LABBT 11:01
PROVIDERS: ATTEND Specialist
DX: Z01.812 Encounter for preprocedural laboratory examination (principal); K40.90 Unilateral inguinal hernia, without obstruction or gangrene, not specified as recurrent; K80.20 Calculus of gallbladder without cholecystitis without obstruction
CPT/HCPCS: 80053; 85025

== ENCOUNTER 2022-07-31 13:45 | Outpatient (CLI) | payer MEDICARE | END 2022-07-31 13:46 | disposition home or self-care (01) | LOC: LABBT 13:45 | PROVIDERS: ATTEND Thoracic Surgery (Cardiothoracic Vascular Surgery) | DX: Z53.9 Procedure and treatment not carried out, unspecified reason (principal) | CPT/HCPCS: 80048; 85027; 86850; 86900; 86901 ==

== ENCOUNTER 2022-07-31 14:00 | Inpatient (IN) | payer MEDICARE ==
[2022-07-31 14:28] LABS: Hemoglobin 13.7 g/dL (13.5-17.5); Mean Corpuscular HGB CONC 33.7 g/dL (32.0-36.0); Mean Corpuscular Hemoglobin 30.5 pg (27.0-33.0); Mean Corpuscular Volume 90.6 fl (81.2-95.1); Mean Platelet Volume 12.1 fl (7.4-10.4); Platelet Count 182 10x3/uL (150-450); RBC Distribution Width 13.3 % (11.5-14.5); Red Blood Cell (RBC) Count 4.49 10x6/uL (4.32-5.72); White Blood Cell (WBC) Count 8.1 10x3/uL (3.5-10.5)
[2022-07-31 14:51] LABS: Anion Gap 12 mmol/L (10-20); BUN (Urea Nitrogen) 23 mg/dL (8.4-25.7); Calc. Creatinine Clearance 0 mL/min (70-130); Calcium 8.7 mg/dL (7.8-10.44); Carbon Dioxide 28 mmol/L (23-31); Chloride 109 mmol/L (98-107); Estimated GFR 59; Glucose 101 mg/dL (80-115); Sodium 145 mmol/L (136-145)
[2022-08-01] MEDS ORDERED: Bupivacaine HCl 0.5%/Epinephrine 1:200,000/PF 30 ml Vial ONE (08:37)
[2022-08-01] MEDS ORDERED: Dexamethasone 4 mg/ml Vial ONE (08:37)
[2022-08-01] MEDS ORDERED: Albumin 5% 500 ML ONE (08:37)
[2022-08-01] MEDS ORDERED: Lidocaine 1% MPF 2 ML VIAL ONE (08:57)
[2022-08-01] MEDS ORDERED: Heparin 10,000 UNITS/1 ML VIAL 30,000 UNITS in Sodium Chloride 0.9% 1,000 ML FS SCH (09:15)
[2022-08-01] MEDS ORDERED: PHENYLEPHRINE-NS 100 MCG/ML 10 ML SYRINGE ONE (09:42)
[2022-08-01] MEDS ORDERED: Sodium Chloride 0.9% 100 ML ONE (10:06)
[2022-08-01] MEDS ORDERED: CEFAZOLIN 2 GM VIAL ONE (10:06)
[2022-08-01] MEDS ORDERED: Midazolam HCl 5 mg/5 ml Vial ONE (10:20)
[2022-08-01] MEDS ORDERED: Fentanyl 250 MCG/5 ML VIAL ONE (10:20)
[2022-08-01] MEDS ORDERED: Mannitol 12.5 GM/50 ML ONE (10:31)
[2022-08-01] MEDS ORDERED: Thrombin 5000 UNITS/5 ML VIAL ONE (10:31)
[2022-08-01] MEDS ORDERED: Magnesium 5 GM/10 ML VIAL ONE (10:31)
[2022-08-01] MEDS ORDERED: Lidocaine 2% PF 100 mg/5 ml Syringe ONE (10:31)
[2022-08-01] MEDS ORDERED: Vancomycin 1 GM VIAL ONE (10:31)
[2022-08-01] MEDS ORDERED: Heparin 5,000 UNITS/ML VIAL ONE (10:31)
[2022-08-01] MEDS ORDERED: Papaverine 60 MG/2 ML VIAL ONE (10:31)
[2022-08-01] MEDS ORDERED: Protamine Sulfate 250 MG/25 ML VIAL ONE (10:31)
[2022-08-01] MEDS ORDERED: Vecuronium 10 MG VIAL ONE (10:31)
[2022-08-01] MEDS ORDERED: Potassium Chloride 60 MEQ/30 ML VIAL ONE (10:31)
[2022-08-01] MEDS ORDERED: Sodium Bicarb 50 MEQ/50 ML Abboject 8.4% SYRINGE ONE (10:31)
[2022-08-01] MEDS ORDERED: Heparin 30,000 units/30 ml VIAL ONE (10:31)
[2022-08-01] MEDS ORDERED: Cardioplegic Soln 1,000 ML BAG ONE (10:31)
[2022-08-01] MEDS ORDERED: Metoprolol Tartrate 5 MG/5 ML VIAL ONE (10:31)
[2022-08-01] MEDS ORDERED: PROPOFOL 200 MG/20 ML VIAL ONE (10:31)
[2022-08-01] MEDS ORDERED: Calcium Chloride 1 GM/10 ML Abboject SYRINGE ONE (10:31)
[2022-08-01] MEDS ORDERED: Aminocaproic Acid 5 GM/20 ML VIAL ONE (10:31)
[2022-08-01 10:48] LABS: SARS-CoV-2 NAA Rapid Test Not Detected (NotDetected)
[2022-08-01] MEDS ORDERED: hydrALAZINE 20 MG/ML VIAL SLOW IVP PRN (13:42)
[2022-08-01] MEDS ORDERED: Bisacodyl 10 MG SUPP PR PRN (13:42)
[2022-08-01] MEDS ORDERED: niCARdipine 25 MG in Sodium Chloride 0.9% 250 ML 250 ML IVPB PRN (13:42)
[2022-08-01] MEDS ORDERED: Hetastarch 6% 500 ML 500 ML IVPB PRN (13:42)
[2022-08-01] MEDS ORDERED: Guaifenesin DM 100-10/5 ML UDCUP PO PRN (13:42)
[2022-08-01] MEDS ORDERED: Potassium Chloride 20 MEQ/100 ML PREMIX BAG IVPB PRN (13:42)
[2022-08-01] MEDS ORDERED: Bisacodyl 5 MG TAB PO PRN (13:42)
[2022-08-01] MEDS ORDERED: Mag-Al 1200 mg/1200 mg/30 ML UDCUP PO PRN (13:42)
[2022-08-01] MEDS ORDERED: NOREPINEPHRINE 8 MG/250 ML-D5W 250 ML IVPB PRN (13:42)
[2022-08-01] MEDS ORDERED: Morphine 2 MG/ML VIAL SLOW IVP PRN (13:42)
[2022-08-01] MEDS ORDERED: Acetaminophen 325 MG TAB PO PRN (13:42)
[2022-08-01] MEDS ORDERED: methylPREDNISolone Sod Succ/PF 125 MG/2 ML VIAL IVP SCH ×2 (14:00→18:00)
[2022-08-01] MEDS: CEFAZOLIN 2 GM in Sodium Chloride 0.9% 100 ML IVPB SCH ×2 (14:23→22:04)
[2022-08-01 14:27] LABS: #Eosinphils 0.2 thou/uL (0.0-0.7); #Lymphocytes 1.4 thou/uL (1.20-3.40); #Monocytes 0.2 thou/uL (0.11-0.59); #Neutrophils 10.8 thou/uL (1.40-6.50); %Basophils 0.2 % (0.0-1.0); %Eosinophils 1.6 % (0.0-10.0); %Lymphocytes 11.2 % (21.0-51.0); %Monocytes 1.5 % (0.0-10.0); %Neutrophils 85.5 % (42.0-75.0); Hemoglobin 12.1 g/dL (14.0-18.0); Mean Corpuscular HGB CONC 33.8 g/dL (32.0-36.0); Mean Corpuscular Hemoglobin 31.8 pg (27.0-31.0); Mean Corpuscular Volume 94.1 fl (78.0-98.0); Mean Platelet Volume 9.8 fL (7.4-10.4); Platelet Count 103 10x3/uL (130-400); RBC Distribution Width 12.5 % (11.5-14.5); Red Blood Cell (RBC) Count 3.81 mill/uL (4.70-6.10); White Blood Cell (WBC) Count 12.7 10x3/uL (4.8-10.8)
[2022-08-01 14:41] LABS: MDiff Complete? YES; Platelet Morphology Comment Appears Decreased; Polychromasia SLIGHT = 2-3 cells (100X) (0-2/hpf)
[2022-08-01 14:47] LABS: INR-International Normal Ratio 1.4; PTT 23.5 sec (22.9-36.1); Prothrombin Time 17.7 sec (12.0-14.7)
[2022-08-01 14:51] LABS: Anion Gap 12 mmol/L (10-20); BUN (Urea Nitrogen) 14 mg/dL (8.4-25.7); Calc. Creatinine Clearance 82 mL/min (70-130); Calcium 9.1 mg/dL (7.8-10.44); Carbon Dioxide 21 mmol/L (23-31); Chloride 112 mmol/L (98-107); Estimated GFR 74; Glucose 135 mg/dL (80-115); Potassium 3.9 mmol/L (3.5-5.1); Sodium 141 mmol/L (136-145)
[2022-08-01 14:55] LABS: Actual Bicarbonate (HCO3a) 19.5 mEq/L (22-28); Base Excess (BEa) -6.4 mEq/L (-2.0 to +3.0); CO2 Tension 40.2 mmHg (35.0-45.0); Calcium, Ionized (arterial) 1.14 mmol/L (1.12-1.30); Carboxyhemoglobin (COHb) 0.5 gm% (0.0-3.0); Hemoglobin (Hb) 13.2 g/dL (14.0-18.0); O2 Tension (PaO2), arterial 79.2 mmHg (> 80.0); Potassium - ABG Lab 4.11 mmol/L (3.70-5.30)
[2022-08-01] MEDS ORDERED: Potassium Chloride 20 MEQ in Lactated Ringer's 1,000 ML IV SCH (15:00)
[2022-08-01 15:08] LABS: Puncture Site Arterial Line
[2022-08-01 15:36] LABS: Actual Bicarbonate (HCO3a) 19.7 mEq/L (22-28); Base Excess (BEa) -5.9 mEq/L (-2.0 to +3.0); CO2 Tension 39.2 mmHg (35.0-45.0); Calcium, Ionized (arterial) 1.16 mmol/L (1.12-1.30); Carboxyhemoglobin (COHb) 0.5 gm% (0.0-3.0); Hemoglobin (Hb) 13.8 g/dL (14.0-18.0); Potassium - ABG Lab 3.92 mmol/L (3.70-5.30); pH, Arterial 7.32 (7.35-7.45)
[2022-08-01 15:37] LABS: O2 Tension (PaO2), arterial 59.7 mmHg (> 80.0); Puncture Site Arterial Line
[2022-08-01] MEDS: Insulin Regular 300 UNITS/3 ML VIAL SC PRN ×2 (16:12→20:36)
[2022-08-01] MEDS ORDERED: Dextrose 50% Abboject 50 ML SYRINGE SLOW IVP PRN (16:15)
[2022-08-01] MEDS ORDERED: HUMULIN R 100 UNITS in Sodium Chloride 0.9% 100 ML IVPB SCH (16:15)
[2022-08-01] MEDS ORDERED: Dextrose 5% in Water 1,000 ML IV PRN (16:15)
[2022-08-01] MEDS: Fentanyl 100 MCG/2 ML VIAL SLOW IVP PRN (16:18)
[2022-08-01 20:05] LABS: Hemoglobin 13.1 g/dL (14.0-18.0)
[2022-08-01 20:24] LABS: Potassium 4.1 mmol/L (3.5-5.1)
[2022-08-01] MEDS ORDERED: Famotidine/PF 20 mg/2ml Vial SLOW IVP SCH (21:00)
[2022-08-01] MEDS ORDERED: Atorvastatin Calcium 20 MG TAB PO SCH (21:00)
[2022-08-01] MEDS ORDERED: Simvastatin 40 MG TAB PO SCH (21:00)
[2022-08-02] MEDS: Fentanyl 100 MCG/2 ML VIAL SLOW IVP PRN ×2 (00:08→22:53)
[2022-08-02 04:58] LABS: Anion Gap 13 mmol/L (10-20); BUN (Urea Nitrogen) 18 mg/dL (8.4-25.7); Calc. Creatinine Clearance 79 mL/min (70-130); Calcium 8.4 mg/dL (7.8-10.44); Carbon Dioxide 20 mmol/L (23-31); Chloride 108 mmol/L (98-107); Estimated GFR 71; Glucose 144 mg/dL (80-115); Potassium 4.4 mmol/L (3.5-5.1); Sodium 137 mmol/L (136-145)
[2022-08-02 05:13] LABS: Band 7 % (5-11); Hemoglobin 12.4 g/dL (14.0-18.0); Lymphocytes 2 % (21-51); MDiff Complete? YES; Mean Corpuscular HGB CONC 32.7 g/dL (32.0-36.0); Mean Corpuscular Hemoglobin 30.6 pg (27.0-31.0); Mean Corpuscular Volume 93.5 fl (78.0-98.0); Mean Platelet Volume 10.7 fL (7.4-10.4); Monocytes 3 % (0-10); Neutrophil 88 % (42-75); Platelet Count 132 10x3/uL (130-400); Platelet Morphology Comment Appears Adequate; Polychromasia SLIGHT = 2-3 cells (100X) (0-2/hpf); RBC Distribution Width 12.6 % (11.5-14.5); Red Blood Cell (RBC) Count 4.06 mill/uL (4.70-6.10); White Blood Cell (WBC) Count 18.8 10x3/uL (4.8-10.8)
[2022-08-02] MEDS: CEFAZOLIN 2 GM in Sodium Chloride 0.9% 100 ML IVPB SCH (05:32)
[2022-08-02] MEDS: Ondansetron PF 4 MG/2 ML Vial IVP PRN (05:41)
[2022-08-02] MEDS: Insulin Regular 300 UNITS/3 ML VIAL SC PRN (05:47)
[2022-08-02] MEDS ORDERED: Nitroglycerin 0.4 MG TAB (25 Tab Bottle) SL PRN (08:52)
[2022-08-02] MEDS ORDERED: Mag-Al 1200 mg/1200 mg/30 ML UDCUP PO PRN (08:52)
[2022-08-02] MEDS ORDERED: Zolpidem Tartrate 5 MG TAB PO PRN (08:52)
[2022-08-02] MEDS ORDERED: Bisacodyl 10 MG SUPP PR PRN (08:52)
[2022-08-02] MEDS ORDERED: Milk Of Magnesia 30 ML UDCUP PO PRN (08:52)
[2022-08-02] MEDS ORDERED: diphenhydrAMINE 25 MG CAP PO PRN (08:52)
[2022-08-02] MEDS ORDERED: Mineral Oil ENEMA PR PRN (08:52)
[2022-08-02] MEDS ORDERED: Bisacodyl 5 MG TAB PO PRN (08:52)
[2022-08-02] MEDS ORDERED: Guaifenesin DM 100-10/5 ML UDCUP PO PRN (08:52)
[2022-08-02] MEDS: Aspirin 325 MG TAB PO SCH (08:54)
[2022-08-02] MEDS: traMADol HCl 50 MG TAB PO PRN ×2 (08:54→20:43)
[2022-08-02] MEDS: Magnesium 2 GM/50 ML(in water) 2 GM in Premix Bag 1 BAG IVPB SCH (08:55)
[2022-08-02] MEDS: Rosuvastatin 20 MG TAB PO SCH (09:18)
[2022-08-02] MEDS: Tamsulosin HCl 0.4 MG CAP PO SCH (09:18)
[2022-08-02 11:04] VITALS: BMI 27.4
[2022-08-02] MEDS ORDERED: Insulin Glargine 30 UNITS/0.3 ML VIAL SC PRN (16:01)
[2022-08-02] MEDS: Hydrocortisone 10 mg Tablet PO SCH (20:45)
[2022-08-02] MEDS: Ipratropium/Albuterol 3 ML NEB NEB PRN (21:37)
[2022-08-03] MEDS: Fentanyl 100 MCG/2 ML VIAL SLOW IVP PRN (03:43)
[2022-08-03] MEDS: Ipratropium/Albuterol 3 ML NEB NEB PRN ×2 (04:47→07:12)
[2022-08-03] MEDS ORDERED: Furosemide 40 MG/4 ML VIAL SLOW IVP SCH (07:15)
[2022-08-03] MEDS: Rosuvastatin 20 MG TAB PO SCH (07:51)
[2022-08-03] MEDS: Aspirin 325 MG TAB PO SCH (07:51)
[2022-08-03] MEDS: Tamsulosin HCl 0.4 MG CAP PO SCH (07:52)
[2022-08-03] MEDS: Magnesium 2 GM/50 ML(in water) 2 GM in Premix Bag 1 BAG IVPB SCH (07:52)
[2022-08-03] MEDS: Hydrocortisone 10 mg Tablet PO SCH ×2 (08:04→20:08)
[2022-08-03] MEDS: traMADol HCl 50 MG TAB PO PRN (13:09)
[2022-08-04] MEDS: traMADol HCl 50 MG TAB PO PRN ×3 (00:08→23:36)
[2022-08-04] MEDS: Ipratropium/Albuterol 3 ML NEB NEB PRN (02:33)
[2022-08-04] MEDS: Hydrocortisone 10 mg Tablet PO SCH ×2 (09:24→19:35)
[2022-08-04] MEDS: Rosuvastatin 20 MG TAB PO SCH (09:24)
[2022-08-04] MEDS: Aspirin 325 MG TAB PO SCH (09:25)
[2022-08-04] MEDS: Tamsulosin HCl 0.4 MG CAP PO SCH (09:26)
[2022-08-04] MEDS ORDERED: Furosemide 40 MG TAB PO SCH (12:45)
[2022-08-04] MEDS: Ondansetron PF 4 MG/2 ML Vial IVP PRN (18:04)
[2022-08-05] MEDS ORDERED: Furosemide 40 MG TAB PO SCH (07:30)
[2022-08-05] MEDS: Rosuvastatin 20 MG TAB PO SCH (08:47)
[2022-08-05] MEDS: Tamsulosin HCl 0.4 MG CAP PO SCH (08:47)
[2022-08-05] MEDS: Hydrocortisone 10 mg Tablet PO SCH (08:48)
[2022-08-05] MEDS: Aspirin 325 MG TAB PO SCH (08:50)
[2022-08-05] MEDS ORDERED: Lisinopril 2.5 MG TAB PO SCH (09:00)
[2022-08-05 11:32] VITALS: BP 112/70; TEMP 97.6
== END 2022-08-05 12:44 | disposition home or self-care (01) | DRG 236 ==
LOC: SURG A 08-01 07:50 → CCU 08-01 13:26 → 2NO 08-03 19:30
PROVIDERS: ADMIT Thoracic Surgery (Cardiothoracic Vascular Surgery); ATTEND Thoracic Surgery (Cardiothoracic Vascular Surgery)
PROC: 02100Z9 Bypass Coronary Artery, One Artery from Left Internal Mammary, Open Approach (ICD-10-PCS; principal; 2022-08-01)
PROC: 021209W Bypass Coronary Artery, Three Arteries from Aorta with Autologous Venous Tissue, Open Approach (ICD-10-PCS; 2022-08-01)
PROC: 06BP4ZZ Excision of Right Saphenous Vein, Percutaneous Endoscopic Approach (ICD-10-PCS; 2022-08-01)
PROC: 5A1221Z Performance of Cardiac Output, Continuous (ICD-10-PCS; 2022-08-01)
PROC: 02L70ZK Occlusion of Left Atrial Appendage, Open Approach (ICD-10-PCS; 2022-08-01)
DX: I25.118 Atherosclerotic heart disease of native coronary artery with other forms of angina pectoris (principal); E27.40 Unspecified adrenocortical insufficiency; Z20.822 Contact with and (suspected) exposure to COVID-19; K21.9 Gastro-esophageal reflux disease without esophagitis; E78.2 Mixed hyperlipidemia; M19.90 Unspecified osteoarthritis, unspecified site; Z79.82 Long term (current) use of aspirin; Z79.899 Other long term (current) drug therapy; Z85.820 Personal history of malignant melanoma of skin
CPT/HCPCS: 36416; 36430; 71045; 80048; 82805; 85025; 85027; 85610; 85730; 86850; 86900; 86901; 93005; 93010; 93798; 94002; 94150; 94640; C1751; J1100; J1642; J1644; J1940; J2001; J2150; J2250; J2272; J2405; J2440; J2704; J2720; J2930; J3010; J3370; J3475; J3480; J3490; J7050; J7120; J7620; P9045; S0017; S0028; U0002

== ENCOUNTER 2023-05-22 12:09 | Outpatient (CLI) | payer MEDICARE ==
[2023-05-22 13:16] LABS: #Eosinphils 0.2 10x3/uL (0.0-0.5); #Monocytes 0.5 10x3/uL (0.0-1.1); #Neutrophils 5.3 10x3/uL (1.5-8.4); %Basophils 0.5 % (0.0-2.0); %Eosinophils 2.6 % (0.0-6.0); %Lymphocytes 21.1 % (18.0-47.0); %Monocytes 6.2 % (0.0-10.0); %Neutrophils 69.1 % (40.0-75.0); Hematocrit 45.4 % (38.8-50.0); Hemoglobin 14.9 g/dL (13.5-17.5); Mean Corpuscular HGB CONC 32.8 g/dL (32.0-36.0); Mean Corpuscular Volume 88.5 fl (81.2-95.1); Mean Platelet Volume 11.7 fl (7.4-10.4); Platelet Count 187 10x3/uL (150-450); Red Blood Cell (RBC) Count 5.13 10x6/uL (4.32-5.72); White Blood Cell (WBC) Count 7.7 10x3/uL (3.5-10.5)
[2023-05-22 13:52] LABS: ALT (SGPT) 21 U/L (8-55); AST (SGOT) 22 U/L (5-34); Albumin 4.5 g/dL (3.4-4.8); Alkaline Phosphatase 43 U/L (40-110); Anion Gap 13 mmol/L (10-20); BUN (Urea Nitrogen) 26 mg/dL (8.4-25.7); Bilirubin, Total 1.1 mg/dL (0.2-1.2); Calc. Creatinine Clearance 0 mL/min (70-130); Calcium 9.3 mg/dL (7.8-10.44); Carbon Dioxide 27 mmol/L (23-31); Chloride 105 mmol/L (98-107); Estimated GFR 51; Globulin 2.5 g/dL (2.4-3.5); Glucose 97 mg/dL (80-115); Potassium 4.6 mmol/L (3.5-5.1); Sodium 140 mmol/L (136-145)
== END 2023-05-22 12:10 | disposition home or self-care (01) ==
LOC: LABBT 12:09
PROVIDERS: ATTEND Specialist
DX: Z01.818 Encounter for other preprocedural examination (principal); K40.90 Unilateral inguinal hernia, without obstruction or gangrene, not specified as recurrent; K80.20 Calculus of gallbladder without cholecystitis without obstruction
CPT/HCPCS: 71046; 80053; 85025; 93005; 93010

== ENCOUNTER 2023-05-28 06:56 | Day surgery (SDC) | payer MEDICARE ==
[2023-05-22 12:53] VITALS: BMI 26.5
[2023-05-28] MEDS ORDERED: CEFAZOLIN 2 GM VIAL ONE (07:43)
[2023-05-28] MEDS ORDERED: Ketorolac Tromethamine 30 MG/ML VIAL ONE (07:43)
[2023-05-28] MEDS ORDERED: Acetaminophen 500 MG TAB ONE (07:43)
[2023-05-28] MEDS ORDERED: Sodium Chloride 0.9% 100 ML ONE (07:43)
[2023-05-28] MEDS ORDERED: PROPOFOL 20 ML ONE ×2 (08:00→09:06)
[2023-05-28] MEDS ORDERED: Lidocaine 2% PF 5 ML VIAL ONE (08:00)
[2023-05-28] MEDS ORDERED: Ondansetron PF 4 MG/2 ML Vial ONE ×2 (08:00→10:54)
[2023-05-28] MEDS ORDERED: Rocuronium Bromide 10 MG/ML (10ML VIAL) ONE ×2 (08:00→10:54)
[2023-05-28] MEDS ORDERED: Dexamethasone 4 mg/ml Vial ONE ×2 (08:00→09:02)
[2023-05-28] MEDS ORDERED: Fentanyl 250 MCG/5 ML VIAL ONE (10:14)
[2023-05-28] MEDS ORDERED: SUGAMMADEX SODIUM 200 MG/2 ML VIAL ONE (10:26)
[2023-05-28] MEDS ORDERED: Bupivacaine 0.25% HCL 30 ML VIAL ONE (10:32)
[2023-05-28] MEDS ORDERED: EPINEPHrine 1 MG/ML VIAL ONE (10:32)
[2023-05-28] MEDS ORDERED: Dexamethasone 20 MG/5 ML VIAL ONE (10:54)
[2023-05-28] MEDS ORDERED: PROPOFOL 200 MG/20 ML VIAL ONE (10:54)
[2023-05-28] MEDS ORDERED: Lidocaine 1% PF 5 ML VIAL ONE (10:54)
[2023-05-28] MEDS ORDERED: Indocyanine Green 25 MG/10 ML VIAL ONE (11:15)
[2023-05-28] MEDS ORDERED: HYDROcodone/Acetaminophen 5/325 mg Tablet ONE (14:27)
== END 2023-05-28 15:06 | disposition home or self-care (01) ==
LOC: SDC 06:56
PROVIDERS: ATTEND Specialist
PROC: 0YU64JZ Supplement Left Inguinal Region with Synthetic Substitute, Percutaneous Endoscopic Approach (ICD-10-PCS; principal; 2023-05-28)
PROC: 0FT44ZZ Resection of Gallbladder, Percutaneous Endoscopic Approach (ICD-10-PCS; 2023-05-28)
DX: K80.10 Calculus of gallbladder with chronic cholecystitis without obstruction (principal); K40.90 Unilateral inguinal hernia, without obstruction or gangrene, not specified as recurrent; E78.5 Hyperlipidemia, unspecified; K21.9 Gastro-esophageal reflux disease without esophagitis; Z87.891 Personal history of nicotine dependence; Z79.899 Other long term (current) drug therapy
CPT/HCPCS: 47562; 49650; A4314; C1781; J0171; 88304; J1100; J1885; J2001; J2405; J2704; J3010; J3490; S0020

== ENCOUNTER 2023-11-27 10:11 | Outpatient (CLI) | payer MEDICARE, OTHER | END 2023-11-27 10:12 | disposition home or self-care (01) | LOC: BICCT 10:11 | PROVIDERS: ATTEND Urology | DX: R10.9 Unspecified abdominal pain (principal) | CPT/HCPCS: 74176 ==